=== PATIENT | female | born 1980 | race American Indian/Alaskan Native ===

== ENCOUNTER 2018-01-04 16:27 | Emergency (ER) | payer OTHER ==
[2018-01-04] MEDS ORDERED: MOTRIN PO ONE (17:06)
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
[2018-01-04] MEDS ORDERED: TYLENOL PO ONE (17:08)
[2018-01-04] MEDS ORDERED: FLEXERIL PO ONE (17:09)
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
[2018-01-04 18:50] VITALS: BP 128/90
== END 2018-01-04 18:49 | disposition home or self-care (01) ==
LOC: ED 16:27
DX: M54.2 Cervicalgia (principal); F17.200 Nicotine dependence, unspecified, uncomplicated; Z88.8 Allergy status to other drugs, medicaments and biological substances; V89.2XXA Person injured in unspecified motor-vehicle accident, traffic, initial encounter; Y93.89 Activity, other specified; Y92.89 Other specified places as the place of occurrence of the external cause; Y99.8 Other external cause status
CPT/HCPCS: 71046; 72040; 99283

== ENCOUNTER 2020-09-17 01:10 | Emergency (ER) | payer OTHER ==
--- NOTE | 2020-09-17 02:04 | XRay Report ---
RIGHT KNEE 3 VIEWS INDICATION / CLINICAL INFORMATION: pain COMPARISON: None available. FINDINGS: BONES / JOINT(S): No acute fracture or subluxation. No significant arthritis. SOFT TISSUES: No significant abnormality. ADDITIONAL FINDINGS: None. Signer Name: Marcos Donald MD Signed: 09/17/2020 1:59 AM Workstation Name: [id number]
[2020-09-17] MEDS ORDERED: predniSONE 20 MG TAB PO ONE (02:58)
[2020-09-17] MEDS ORDERED: IBUPROFEN 600 MG TAB PO ONE (02:58)
[2020-09-17] MEDS ORDERED: ACETAMINOPHEN 500 MG TAB PO ONE (02:58)
--- NOTE | 2020-09-17 03:03 | Emergency Department Report ---
ED Extremity Problem HPI - General Chief complaint: Extremity Injury, Lower Stated complaint: RT KNEE SWOLLEN Source: patient Mode of arrival: Ambulatory Limitations: No Limitations - History of Present Illness Initial comments: Patient is a 40-year-old -[place] female with history of PTSD and chronic osteoarthritis who presents to the ED with acute onset persistent non traumatic right knee pain and swelling for the last 2 months intermittently. Patient states that the pain is persistent and worse with any ambulation or at rest. Patient states that she has been taking "natural products" to try and control her pain with no relief. Patient denies dizziness, syncope, heavy lifting, traumatic injury, nausea and vomiting, chest pain, fever or chills, shortness of breath, fall, low back pain, hip pain, nausea and vomiting or numbness and tingling or weakness of lower extremities bilaterally MD Complaint: extremity pain (right knee), extremity swelling (right knee), joint swelling (right knee), joint paint (right knee) -: Gradual, month(s) (2) Location: right, lower extremity (knee), knee (right ) History of Same: Yes -: Yes arthralgia Radiation: none Severity scale (0 -10): 6 Quality: aching, sharp Consistency: constant Improves with: nothing Worsens with: weight bearing, walking, exertion, palpation Associated Symptoms: denies other symptoms, arthralgias. denies: chest pain, shortness of breath, fever, myalgias, rash - Related Data Previous Rx's Medication Instructions Recorded Last Taken Type Cyclobenzaprine [Flexeril] 10 mg PO TID PRN #30 tablet 01/04/18 Unknown Rx Diclofenac Sodium [Voltaren] 100 gm TP Q6H PRN #1 gel..gram. 01/04/18 Unknown Rx HYDROcodone/APAP 5-325 [[place] 1 each PO Q6HR PRN #10 tablet 05/12/18 Unknown Rx 5/325] Meloxicam [Mobic] 1 tab PO DAILY #30 tablet 09/17/20 Unknown Rx predniSONE [Deltasone] 60 mg PO QDAY #15 tab 09/17/20 Unknown Rx traMADoL [Ultram] 50 mg PO Q6HR PRN #12 tablet 09/17/20 Unknown Rx Allergies Allergy/AdvReac Type Severity Reaction Status Date / Time doxycycline AdvReac Unknown Verified 11/03/18 16:16 ED Review of Systems ROS: Stated complaint: RT KNEE SWOLLEN Other details as noted in HPI Constitutional: denies: chills, fever Eyes: denies: eye pain, eye discharge, vision change ENT: denies: ear pain, throat pain Respiratory: denies: cough, shortness of breath, wheezing Cardiovascular: denies: chest pain, palpitations Endocrine: no symptoms reported Gastrointestinal: denies: abdominal pain, nausea, diarrhea Genitourinary: denies: urgency, dysuria, discharge Musculoskeletal: joint swelling (Mild right knee swelling), arthralgia (Right knee pain). denies: back pain Skin: denies: rash, lesions Neurological: denies: headache, weakness, paresthesias Psychiatric: denies: anxiety, depression Hematological/Lymphatic: denies: easy bleeding, easy bruising ED Past Medical Hx - Past Medical History Previous Medical History?: No Hx Hypertension: No Hx CVA: No Hx Heart Attack/AMI: No Hx Congestive Heart Failure: No Hx Diabetes: No Hx Deep Vein Thrombosis: No Hx Pulmonary Embolism: No Hx GERD: No Hx Liver Disease: No Hx Renal Disease: No Hx of Cancer: No Hx Sickle Cell Disease: No Hx Arthritis: No Hx Headaches / Migraines: No Hx Seizures: No Hx Kidney Stones: No Hx Psychiatric Treatment: No Hx Asthma: No Hx COPD: No Hx Tuberculosis: No Hx Dementia: No Hx HIV: No - Surgical History Past Surgical History?: Yes Hx Coronary Stent: No Hx Open Heart Surgery: No Hx Pacemaker: No Hx Internal Defibrillator: No Hx Cholecystectomy: No Hx Appendectomy: No Hx Breast Surgery: No Additional Surgical History: liver ansd lung repaired, OU corrective sx - Social History Smoking Status: Former Smoker Substance Use Type: Alcohol, Marijuana - Medications Home Medications: Home Medications Medication Instructions Recorded Confirmed Last Taken Type Cyclobenzaprine [Flexeril] 10 mg PO TID PRN #30 tablet 01/04/18 Unknown Rx Diclofenac Sodium [Voltaren] 100 gm TP Q6H PRN #1 gel..gram. 01/04/18 Unknown Rx HYDROcodone/APAP 5-325 [[place] 1 each PO Q6HR PRN #10 tablet 05/12/18 Unknown Rx 5/325] Meloxicam [Mobic] 1 tab PO DAILY #30 tablet 09/17/20 Unknown Rx predniSONE [Deltasone] 60 mg PO QDAY #15 tab 09/17/20 Unknown Rx traMADoL [Ultram] 50 mg PO Q6HR PRN #12 tablet 09/17/20 Unknown Rx ED Physical Exam - General Limitations: No Limitations General appearance: alert, in no apparent distress - Head Head exam: Present: atraumatic, normocephalic, normal inspection - Eye Eye exam: Present: normal appearance, PERRL, EOMI Pupils: Present: normal accommodation - ENT ENT exam: Present: normal exam, normal orophraynx, mucous membranes moist, TM's normal bilaterally, normal external ear exam - Neck Neck exam: Present: normal inspection, full ROM - Respiratory Respiratory exam: Present: normal lung sounds bilaterally. Absent: respiratory distress, wheezes, rhonchi, chest wall tenderness, decreased breath sounds, prolonged expiratory - Cardiovascular Cardiovascular Exam: Present: normal rhythm, tachycardia, normal heart sounds. Absent: systolic murmur, diastolic murmur, rubs, gallop - GI/Abdominal GI/Abdominal exam: Present: soft, normal bowel sounds. Absent: tenderness, guarding, hyperactive bowel sounds, hypoactive bowel sounds - Extremities Exam Extremities exam: Present: normal inspection, full ROM, tenderness (Palpable right knee tenderness), normal capillary refill, joint swelling (Mild right knee swelling). Absent: pedal edema, calf tenderness - Back Exam Back exam: Present: normal inspection, full ROM. Absent: tenderness, CVA tenderness (R), CVA tenderness (L), muscle spasm, paraspinal tenderness - Neurological Exam Neurological exam: Present: alert, oriented X3, CN II-XII intact, normal gait, reflexes normal - Psychiatric Psychiatric exam: Present: normal affect, normal mood - Skin Skin exam: Present: warm, dry, intact, normal color. Absent: rash ED Course Vital Signs 09/17/20 01:18 Temperature 98.0 F Pulse Rate 103 H Respiratory 12 Rate Blood Pressure 131/85 O2 Sat by Pulse 99 Oximetry ED Medical Decision Making - Radiology Data Radiology results: report reviewed, image reviewed [address] [address] XRay Report Signed Patient: QUIQUE SALEEM MR#: [id number] : 1980 Acct:[id number] Age/Sex: 40 / F ADM Date: 09/17/20 Loc: ED Attending Dr: Ordering Physician: ALICIA URIOSTEGUI Date of Service: 09/17/20 Procedure(s): XR knee 3V RT Accession Number(s): [id number] cc: ALICIA URIOSTEGUI Fluoro Time In Minutes: RIGHT KNEE 3 VIEWS INDICATION / CLINICAL INFORMATION: pain COMPARISON: None available. FINDINGS: BONES / JOINT(S): No acute fracture or subluxation. No significant arthritis. SOFT TISSUES: No significant abnormality. ADDITIONAL FINDINGS: None. Signer Name: Marcos Donald MD Signed: 09/17/2020 1:59 AM Workstation Name: [id number] Transcribed By: ES Dictated By: Marcos Donald MD Electronically Authenticated By: Marcos Donald MD Signed Date/Time: 09/17/20158 DD/ 7 TD/TT: Print - Medical Decision Making This is a 40-year-old -[place] female with history of PTSD and chronic osteoarthritis who presents to the ED with acute onset persistent nontraumatic right knee pain and swelling for the last 2 months intermittently. Patient states that the pain is persistent and worse with any ambulation or at rest. Patient states that she has been taking "natural products" to try and control her pain with no relief. In the ED, patient is alert and oriented x3 and is not in distress. Patient however appears to be in pain. Patient was treated for pain in the ED and right knee x-ray shows no acute fractures or subluxations. Patient was discharged home on pain medications and advised to follow-up with her primary care physician in 5 to 7 days for reevaluation or return to the ED immediately if symptoms get worse. - Differential Diagnosis Osteoarthritis; tendinitis; muscle strain; bursitis; muscle spasm Critical care attestation.: If time is entered above; I have spent that time in minutes in the direct care of this critically ill patient, excluding procedure time. ED Disposition Clinical Impression: Tendinitis of right knee Osteoarthritis of right knee Qualifiers: Osteoarthritis type: primary Qualified Code(s): M17.11 - Unilateral primary osteoarthritis, right knee Disposition: - TO HOME OR SELFCARE Is pt being admited?: No Does the pt Need Aspirin: No Condition: Stable Instructions: Arthritis, [id number], Preventing Osteoarthritis, Adult, Tendinitis, [id number] Additional Instructions: Right knee x-ray shows no acute fractures or subluxation. Your symptoms are likely due to acute exacerbation of chronic osteoarthritis versus tendinitis. Therefore take medication with food, drink plenty of fluids and follow-up with your primary care physician in 7 to 10 days for reevaluation. Return to the ED immediately if symptoms get worse. Prescriptions: predniSONE [Deltasone] 60 mg PO QDAY #15 tab Meloxicam [Mobic] 1 tab PO DAILY #30 tablet traMADoL [Ultram] 50 mg PO Q6HR PRN #12 tablet PRN Reason: Pain Referrals: [facility] [Provider Group] - 3-5 Days Time of Disposition: 03:00 Print Language: PASHTO
[2020-09-17 03:21] VITALS: BP 146/62
== END 2020-09-17 03:26 | disposition home or self-care (01) ==
LOC: ED 01:10
DX: M17.11 Unilateral primary osteoarthritis, right knee (principal); M76.9 Unspecified enthesopathy, lower limb, excluding foot; F12.10 Cannabis abuse, uncomplicated; Z87.891 Personal history of nicotine dependence; Z98.890 Other specified postprocedural states; Z79.899 Other long term (current) drug therapy; Z88.8 Allergy status to other drugs, medicaments and biological substances
CPT/HCPCS: 73562; 99283; J7512

== ENCOUNTER 2020-09-25 19:23 | Emergency (ER) | payer OTHER ==
[2020-09-25 19:35] VITALS: BP 130/90
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
== END 2020-09-25 21:00 | disposition home or self-care (01) ==
LOC: ED 19:23
DX: S16.1XXA Strain of muscle, fascia and tendon at neck level, initial encounter (principal); M50.320 Other cervical disc degeneration, mid-cervical region, unspecified level; R07.89 Other chest pain; M25.531 Pain in right wrist; F17.200 Nicotine dependence, unspecified, uncomplicated; F12.10 Cannabis abuse, uncomplicated; Z98.890 Other specified postprocedural states; Z79.899 Other long term (current) drug therapy; Z88.8 Allergy status to other drugs, medicaments and biological substances; V49.49XA Driver injured in collision with other motor vehicles in traffic accident, initial encounter; W22.10XA Striking against or struck by unspecified automobile airbag, initial encounter; Y93.89 Activity, other specified; Y92.410 Unspecified street and highway as the place of occurrence of the external cause; Y99.8 Other external cause status
CPT/HCPCS: 71250; 72125

== ENCOUNTER 2021-02-08 18:34 | Emergency (ER) | payer OTHER ==
[2021-02-08 21:30] LABS: Bacteria,Urine 1+ /HPF (Negative); Bilirubin,Urine NEG (Negative); Blood,Urine LG (Negative); Color,Urine Yellow (Yellow); Mucus,Urine FEW /HPF; Protein,Urine <15 mg/dL mg/dL (Negative)
[2021-02-08 21:36] LABS: Basophils # (Auto) 0.1 K/mm3 (0.0-0.1); Eosinophils # (Auto) 0.1 K/mm3 (0.0-0.4); Eosinophils % (Auto) 0.7 % (0.0-4.3); Hematocrit 38.1 % (30.3-42.9); Hemoglobin 12.8 gm/dl (10.1-14.3); Lymphocytes # (Auto) 3.8 K/mm3 (1.2-5.4); Lymphocytes % (Auto) 29.7 % (13.4-35.0); Mean Corpuscular HGB Conc 34 % (30-34); Mean Corpuscular Volume 93 fl (79-97); Monocytes # (Auto) 0.7 K/mm3 (0.0-0.8); Monocytes % (Auto) 5.4 % (0.0-7.3); Platelet Count 265 K/mm3 (140-440); Red Blood Count 4.08 M/mm3 (3.65-5.03); Red Cell Distribution Width 14.4 % (13.2-15.2)
[2021-02-08 22:03] LABS: Alanine Aminotransferase 15 units/L (7-56); Blood Urea Nitrogen 5 mg/dL (7-17); Hemolysis Index 6
[2021-02-08 22:07] LABS: BUN/Creatinine Ratio 10; Bilirubin,Direct < 0.2 mg/dL (0-0.2)
[2021-02-09 00:09] VITALS: BP 129/73
--- NOTE | 2021-02-09 01:06 | Ultrasound Report ---
ULTRASOUND OBSTETRIC INDICATION / CLINICAL INFORMATION: pain. Pelvic pain with vaginal spotting. Clinical Gestational Age (GA) in weeks, days: 10, 0 TECHNIQUE: Transabdominal and Transvaginal. COMPARISON: None available. FINDINGS: GESTATIONAL SAC: Well-defined oval shape and intrauterine in location. YOLK SAC: No significant abnormality. EMBRYO/FETUS: No significant abnormality. - [place]-Rump Length = 4.3 cm = 11, 1 weeks, days - Heart Rate, beats per minute (if present) = 166 ADNEXA: No significant abnormality. FREE FLUID: None. ADDITIONAL FINDINGS: None. IMPRESSION: 1. Single, living intrauterine with estimated sonographic age of 11, 1 weeks, days. 2. No acute sonographic abnormality. Signer Name: Bianka Simmons MD Signed: 02/09/2021 1:02 AM Workstation Name: [id number]
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
== END 2021-02-09 02:32 | disposition left against medical advice (07) ==
LOC: ED 18:34
DX: R42 Dizziness and giddiness (principal); Z53.21 Procedure and treatment not carried out due to patient leaving prior to being seen by health care provider
CPT/HCPCS: 36415; 76801; 76817; 80048; 80076; 81001; 83690; 84702; 84703; 85025

== ENCOUNTER 2021-06-02 22:00 | Outpatient (CLI) | payer OTHER ==
[2021-06-02 22:59] VITALS: BP 118/75
[2021-06-02] MEDS ORDERED: LACTATED RINGERS 1,000 ML IV ONE (23:26)
[2021-06-02 23:42] LABS: Bilirubin,Urine NEG (Negative); Blood,Urine MOD (Negative); Color,Urine Yellow (Yellow); Mucus,Urine FEW /HPF; Protein,Urine >500 mg/dL (Negative)
[2021-06-02 23:48] LABS: Amphetamine Screen,Urine PRESUMPTIVE NEGATIVE; Benzodiazepines Screen,Urine PRESUMPTIVE NEGATIVE; Cannabinoid Screen,Urine PRESUMPTIVE POSITIVE; Cocaine Screen,Urine PRESUMPTIVE NEGATIVE; Methadone Screen,Urine PRESUMPTIVE NEGATIVE; Opiate Screen,Urine PRESUMPTIVE NEGATIVE
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
--- NOTE | 2021-06-03 03:18 | Event Note ---
Date: 06/03/21 Pt states that she feels much better. She continues to deny vaginal bleeding, LOF, ctxs. Category 1 tracing upon discharge. Ultrasound: no placental abruption. Pt discharged home in good condition. Discussed that she will need to follow up with her primary care OB next week.
== END 2021-06-03 03:10 | disposition home or self-care (01) ==
LOC: TRG 22:00 → APU 22:02 → TRG 06-03 03:10
PROVIDERS: ATTEND Obstetrics & Gynecology
DX: O09.893 Supervision of other high risk pregnancies, third trimester (principal); Z3A.26 26 weeks gestation of pregnancy
CPT/HCPCS: 59025; 76815; 80307; 81001; 85460